=== PATIENT | female | born 1980 | race Caucasian/White ===

== ENCOUNTER → 2017-06-25 | Outpatient (CLI) | payer OTHER | LOC: FIMAGING 15:03 | PROVIDERS: ATTEND Advanced Practice Midwife | DX: O09.511 Supervision of elderly primigravida, first trimester (principal); Z3A.12 12 weeks gestation of pregnancy ==

== ENCOUNTER → 2017-08-13 | Outpatient (CLI) | payer OTHER | LOC: FIMAGING 08:04 | PROVIDERS: ATTEND Advanced Practice Midwife | DX: O09.512 Supervision of elderly primigravida, second trimester (principal); K06.8 Other specified disorders of gingiva and edentulous alveolar ridge; Z3A.19 19 weeks gestation of pregnancy ==

== ENCOUNTER 2018-01-02 04:58 | Inpatient (IN) | payer OTHER ==
[2018-01-02] MEDS ORDERED: EPSOM SALT 454 GM TP PRN (15:17)
[2018-01-02] MEDS ORDERED: LR 1,000 ML IV PRN (15:17)
[2018-01-02] MEDS ORDERED: IBUPROFEN 600 MG TAB PO PRN (15:17)
[2018-01-02] MEDS ORDERED: LIDOCAINE 1% 300 MG/30 ML SDV SC PRN (15:17)
[2018-01-02] MEDS ORDERED: AMMONIA AROMATIC 1 EACH AMP IH PRN (15:17)
[2018-01-02] MEDS ORDERED: OXYTOCIN/RINGERS LACTATE 1,000 ML IV PRN (15:17)
[2018-01-02] MEDS ORDERED: MISOPROSTOL 200 MCG TAB PO PRN (15:17)
[2018-01-02] MEDS ORDERED: TERBUTALINE SULFATE 1 MG/ML VIAL IV PRN (15:17)
[2018-01-02] MEDS ORDERED: OLIVE OIL 118 ML BTL MISC PRN (15:17)
--- NOTE | 2018-01-02 15:19 | PDGENHP ---
History and Physical History and Physical: CARE: [facility] HPI: Judie is a 37 yo G 1 P 0 at 39.5 wks ega who presents to L&D with complaints of regular contractions since 11 am today with leaking fluid which started shortly thereafter. Fluid is clear. Baby is active. Denies vaginal bleeding. Was seen for MARLIN appt. in the clinic this afternoon and was found to have obvious leaking of moderate amt clear amniotic fluid with uncomfortable contractions every 5 minutes or so. SVE 1. Was given the option to go home until contractions coming more frequently or be directly admitted to labor and delivery at this time. Patient opted for admission to l/d. is uncomplicated other than advanced maternal age. EDC: 01/03/18 which is based on LMP: 03/29/17 which is known and consistent with Ultrasound at 10 weeks ega. Review of Systems: Constitutional: Denies any fever, chills, or fatigue HEENT: denies any visual changes, difficulty swallowing, hearing loss Cardiovascular: Denies any chest pain, palpitations, leg swelling Respiratory: denies any cough, wheezing, or shortness of breathe GI: Reports nausea, but denies vomiting, diarrhea, constipation : denies any dysuria, urgency, frequency, vaginal bleeding Musculoskeletal: denies any muscle or bone pain Skin: denies any rashes Neuro: denies any headache, seizures, lightheadedness, dizziness, or loss of consciousness Psychiatric: denies any depression, anxiety, or SI/HI thoughts HISTORY: Previous OB history: none Past medical history: Homozygous MTHFR Past surgical history: none Social history: no tobacco, alcohol or street drugs. Primary support person is her mother, unsure about FOB involvement, not present at bedside at this time. Medications: PNV, fish oil, Vit D, Pro-biotic, Vit C. Allergies (list reaction): NKDA LABS: Rh: O pos ABS: Neg Rubella: Immune HbsAg: NR HIV: NR VDRL: NR 1hr: 88 GC: Neg Chlamydia: Neg Pap: Normal GBS: neg PHYSICAL EXAM: Constitutional: WN, A&Ox3 Skin: pink, warm and dry HEENT: normocephalic atraumatic, supple Heart: RRR, no murmur Chest: CTA-B Abdomen: Soft, nontender, gravid SVE: 3/90/-1 Extremities: tr edema, negative ivonne's sign Neuro: grossly normal Psych: normal affect assessment: Reassuring FHTs, baseline 130s +accels, no decels, moderate variability Contractions: toco q 2-3, mod intensity Assessment: 1) 37 yo with IUP@39.6 weeks ega 2) SROM clear fluid with spontaneous labor 3) GBS neg 4) Cat 1 FHR tracing Plan: 1) Admit to L&D 2) Intermittent protocol per policy 3) Diet as tolerated 4) Anticipate
[2018-01-02] MEDS ORDERED: OLIVE OIL 118 ML BTL ONE (16:24)
[2018-01-02] MEDS ORDERED: LIDOCAINE 1% 300 MG/30 ML SDV ONE (16:24)
[2018-01-02] MEDS ORDERED: AMMONIA AROMATIC 1 EACH AMP IH ONE (16:25)
[2018-01-02] MEDS ORDERED: OXYTOCIN 10 UNIT/ML VIAL ONE (16:25)
[2018-01-02] MEDS ORDERED: MISOPROSTOL 200 MCG TAB ONE (16:25)
[2018-01-02 17:17] LABS: PLATELET COUNT 195 10^3/uL (150-400)
--- NOTE | 2018-01-02 19:18 | OBPROG ---
Labor Progress Note Assessment/Plan: Assessment: 37 y/o G1 s/p SROM Active labor Reassuring FHTs per doptone Plan: Expectant management Anticipate 01/02/18 19:15 Subjective/Intrapartum Course: 01/02/18 19:16 Doing well, breathing well with contractions. Getting into tub. Objective: 01/02/18 16:44 Patient ABO/Rh O POSITIVE 01/02/18 16:44 - SVE Dilation (cm): 6 Effacement (%): 100 Station: -1 Membranes: SROM Amniotic Fluid Color: Clear - Contraction Pattern Assessment Current Contraction Pattern: Regular - Physical Exam General Appearance: WD/WN, alert, no apparent distress Estimated Weight: 2501-3400g Neck: non-tender Respiratory: lungs clear Cardiac/Chest: normal peripheral pulses, regular rate, rhythm Extremities: normal range of motion Skin: normal color, warm/dry Neuro/Psych: alert, normal mood/affect, oriented x 3 CNM Assessment - Uterine Assessment Contraction Strength: Moderate Uterine Resting Tone: Palpates Soft Contraction Frequency (minutes): 2-3 Contraction Duration (sec): 60 - Intermittent Auscultation Auscultation Method Used: Doppler Heart Rate Auscultated (bpm): 130 FHR Acceleration(s) Auscultated: Yes FHR Deceleration(s) Auscultated: No Oxytocin Orders Assessment - Pre-Induction/Augmentation Assessment Gestational Age: 39 week(s) and 6 day(s) ICD10 Worksheet Patient Problems: Problems Problem Status Onset Advanced maternal age, 1st Acute - ICD10 Problem Qualifiers (1) Advanced maternal age, 1st
[2018-01-02] MEDS ORDERED: METHYLERGONOVINE MAL 0.2 MG/ML INJ ONE (23:06)
--- NOTE | 2018-01-03 02:02 | OBDEL ---
Info Type: Vaginal Presentation at Delivery: Vertex L&D Analgesia/Anesthesia Type: Local GBS+: No Intrapartum Medications: Discontinued Medications Generic Name Dose Route Start Last Admin Trade Name Roger PRN Reason Stop Dose Admin Ibuprofen 600 mg 01/02/18 15:17 01/03/18 01:36 Motrin PO 600 mg ONCE PRN Administration post , pain - Hospital Course Intrapartum: 01/02/18 19:16 Doing well, breathing well with contractions. Getting into tub. Indications for Delivery: Spontaneous Labor Vaginal Delivery - Delivery Provider Delivery Physician/CNM: Saloni Bailon - Labor and Delivery Onset of Contractions Date: 01/02/18 Onset of Contractions Time: 17:00 Onset of Contractions Type: Spontaneous Rupture of Membranes Date: 01/02/18 Rupture of Membranes Time: 13:45 Rupture of Membranes Type: Spontaneous Amniotic Fluid Color: Clear Dilation Complete Date: 01/02/18 Dilation Complete Time: 22:35 Placenta Delivery Date: 01/03/18 Placenta Delivery Time: 00:41 Total Hours of Labor: 7 Laceration: 2nd Degree Repair: 3-0, Vicryl Vaginal Sponge Count Correct: Yes Vaginal Needle Count Correct: Yes Vaginal Sweep Performed: Yes EBL: 350 Delivery Events: Other (Specify) (nuchal arm) [place] Data ISHMAEL: 01/03/18 Gestational Age: 40 week(s) and 0 day(s) [place] Sex of : Female Score (1 Min): 8 Score (5 Min): 8 ICD10 Worksheet Patient Problems: Problems Problem Status Onset Advanced maternal age, 1st Acute Vaginal delivery Acute - ICD10 Problem Qualifiers (1) Advanced maternal age, 1st (2) Vaginal delivery
[2018-01-03] MEDS ORDERED: DOCUSATE SODIUM 100 MG CAP PO PRN (02:25)
[2018-01-03] MEDS ORDERED: HYDROCORTISONE 0.5% CREAM TP PRN (02:25)
[2018-01-03] MEDS ORDERED: SIMETHICONE 80 MG TAB CHEW PO PRN (02:25)
[2018-01-03] MEDS: ACETAMINOPHEN 325 MG TAB PO SCH ×3 (04:13→21:19)
[2018-01-03] MEDS: IBUPROFEN 600 MG TAB PO SCH ×3 (09:01→21:20)
[2018-01-04] MEDS: ACETAMINOPHEN 325 MG TAB PO SCH ×3 (02:51→17:57)
[2018-01-04] MEDS: IBUPROFEN 600 MG TAB PO SCH ×3 (02:51→17:57)
--- NOTE | 2018-01-04 13:02 | OBPP ---
Progress Note Assessment/Plan: Assessment: Plan: 01/04/18 13:01 PPD #1 Anemia r/t pp hemorrhage P: Ferrous Sulfate bid now, discussed liquid Floridix when she discharges bid and iron rich foods Discussed ibuprofen when she starts ambulating more as needed Discharge home tomorrow Subjective/ Course: 01/04/18 12:59 Overall feeling good. Tired but felt better after getting some sleep last night. Baby is latching well and nursing frequently. States nipples a little tender. Stopped pain medication. Bleeding minimal. Desires discharge home tomorrow Objective: 01/04/18 05:45 Patient ABO/Rh O POSITIVE 01/02/18 16:44 Temp Pulse Resp BP Pulse Ox 36.4 C 83 18 113/60 96 01/04/18 08:00 01/04/18 08:00 01/04/18 08:00 01/04/18 08:00 01/04/18 08:00 Breasts soft, nipples intact bilaterally Negative ivonne's Uterine Position/Fundal Height: Umbilicus -2 Uterine Tone: Firm
[2018-01-04] MEDS: FERROUS SULFATE 325 MG TAB PO SCH (22:59)
[2018-01-05] MEDS: IBUPROFEN 600 MG TAB PO SCH ×3 (00:15→11:03)
[2018-01-05] MEDS: ACETAMINOPHEN 325 MG TAB PO SCH ×3 (00:15→10:50)
[2018-01-05 08:59] VITALS: BP 109/65
--- NOTE | 2018-01-05 10:50 | OBGCSDC ---
General Delivery Information - General Info : 1 Para: 1 Abortions: 0 Type: Vaginal L&D Analgesia/Anesthesia Type: Local Admission Date: 01/02/18 Labs: Patient ABO/Rh O POSITIVE 01/02/18 16:44 Hct 28.7 % (38.0-47.0) L 01/04/18 05:45 - Hospital Course Intrapartum: 01/02/18 19:16 Doing well, breathing well with contractions. Getting into tub. : 01/04/18 12:59 Overall feeling good. Tired but felt better after getting some sleep last night. Baby is latching well and nursing frequently. States nipples a little tender. Stopped pain medication. Bleeding minimal. Desires discharge home tomorrow 01/05/18 10:48 Doing well. Baby is latching well and spitting up colostrum. Bleeding minimal. Ready for discharge home Vaginal - Delivery Provider Delivery Physician/CNM: Saloni Bailon - Diagnosis Labor: Spontaneous Rupture of Membranes Type: Spontaneous Amniotic Fluid Color: Clear Laceration: 2nd Degree Repair: 3-0, Vicryl Delivery Events: Other (Specify) (nuchal arm) - Delivery EBL: 350 [place] Data ISHMAEL: 01/03/18 Gestational Age: 40 week(s) and 2 day(s) Lopez Delivery Date: 01/03/18 Delivery Time: 00:17 Sex of : Female [place] Weight (gm): 3440 g Score (1 Min): 8 Score (5 Min): 9 Discharge Information - Discharge Information Condition: Good Instruction/Follow Up: Two Weeks, Four Weeks, Six Weeks
--- NOTE | 2018-01-05 10:50 | OBPP ---
Progress Note Assessment/Plan: Assessment: Plan: 01/04/18 13:01 PPD #1 Anemia r/t pp hemorrhage P: Ferrous Sulfate bid now, discussed liquid Floridix when she discharges bid and iron rich foods Discussed ibuprofen when she starts ambulating more as needed Discharge home tomorrow 01/05/18 10:49 Stable PPD #2 Establishing Discharge home today Subjective/ Course: 01/04/18 12:59 Overall feeling good. Tired but felt better after getting some sleep last night. Baby is latching well and nursing frequently. States nipples a little tender. Stopped pain medication. Bleeding minimal. Desires discharge home tomorrow 01/05/18 10:48 Doing well. Baby is latching well and spitting up colostrum. Bleeding minimal. Ready for discharge home Objective: 01/04/18 05:45 Patient ABO/Rh O POSITIVE 01/02/18 16:44 Temp Pulse Resp BP Pulse Ox 36.6 C 76 16 109/65 98 01/05/18 08:00 01/05/18 08:00 01/05/18 08:00 01/05/18 08:00 01/05/18 08:00 Breasts soft; nipples intact bilaterally Uterine Position/Fundal Height: Umbilicus -1 Uterine Tone: Firm
[2018-01-05] MEDS: FERROUS SULFATE 325 MG TAB PO SCH (11:02)
== END 2018-01-05 12:49 | disposition home or self-care (01) | DRG 807 ==
LOC: FLD 04:58 → FOB 01-03 03:10
PROVIDERS: ADMIT Advanced Practice Midwife; ATTEND Advanced Practice Midwife
DX: O72.1 Other immediate postpartum hemorrhage (principal); O90.81 Anemia of the puerperium; O70.1 Second degree perineal laceration during delivery; Z3A.40 40 weeks gestation of pregnancy; Z37.0 Single live birth
CPT/HCPCS: J2210; J2590